=== PATIENT | male | born 1995 ===

== ENCOUNTER 2017-07-19 05:04 | Emergency (ER) | payer OTHER ==
[~2017-07-19] VITALS: Ht 188 cm; Wt 61.0 kg
[2017-07-19 05:08] VITALS: Ht 188 cm; Wt 61.0 kg
[2017-07-19] MEDS ORDERED: IBUP-1542 PO (05:28)
[2017-07-19] MEDS ORDERED: IBUPROFEN 600 MG TAB PO ONE (05:30)
[2017-07-19] MEDS ORDERED: DIPHTH/TET/ACEL PERTUSS (ADULT) 0.5 ML VIAL IM* ONE (05:30)
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
[2017-07-19 05:45] VITALS: BP 130/82; PULSE 81; RESP 18; TEMP 98.6
== END 2017-07-19 06:06 | disposition home or self-care (01) ==
LOC: E/R 05:04
DX: S01.111A Laceration without foreign body of right eyelid and periocular area, initial encounter (principal); Y08.89XA Assault by other specified means, initial encounter; Z23 Encounter for immunization
CPT/HCPCS: 90471; 90715